=== PATIENT | male | born 1980 | race Caucasian/White ===

== ENCOUNTER 2023-12-19 15:47 | Emergency (ER) | payer BC, OTHER ==
[2023-12-19] MEDS ORDERED: Boostrix 0.5 ML (Tdap) VIAL (>/=7 yrs of age) ONE (17:08)
[2023-12-19] MEDS ORDERED: Bacitracin 1 PK ONE (17:09)
== END 2023-12-19 18:30 | disposition home or self-care (01) ==
LOC: CSHERS 15:47
DX: S61.512A Laceration without foreign body of left wrist, initial encounter (principal); Z23 Encounter for immunization; W26.0XXA Contact with knife, initial encounter
CPT/HCPCS: 12001; 90471; 90715